=== PATIENT | male | born 2000 | race American Indian/Alaskan Native ===

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

== ENCOUNTER 2022-05-17 13:43 | Emergency (ER) | payer BC ==
[2022-05-17 14:44] LABS: Absolute Lymphocytes (CBC) 1.6 K/uL (0.7-4.9); Hematocrit 44.7 % (39.6-49.0); Lymphocytes % 49.6 % (15.3-44.8); MPV 8.9 fL (7.6-11.3)
[2022-05-17 14:49] LABS: Potassium 4.3 mmol/L (3.5-5.1)
[2022-05-17 14:57] LABS: Albumin 4.3 g/dL (3.4-5.0); Bilirubin Total 2.5 mg/dL (0.2-1.0); Protein, Total 7.2 g/dL (6.4-8.2)
[2022-05-17 14:59] LABS: Urine Blood Negative (Negative); Urine Glucose Negative (Negative); Urine Protein Negative (Negative); Urine Specific Gravity 1.025 (1.005-1.030)
--- NOTE | 2022-05-17 15:14 | RAD REPORT ---
EXAM DESCRIPTION: CT - Stone Protocol - 05/17/2022 2:40 pm CLINICAL HISTORY: Flank pain, kidney stone suspected COMPARISON: Abdomen Pelvis W Contrast dated 03/16/2019; CT ABD PELVIS W CONTRAST dated 05/21/2013 TECHNIQUE: Axial 3 mm thick images were obtained without oral or IV contrast. The [id number] span s the entirety of the system including uppermost abdomen and lung bases. All CT scans are performed using dose optimization technique as appropriate and may include automated exposure control or mA/KV adjustment according to patient size. FINDINGS: No hydronephrosis is present and no obstructing ureteral calculi. A 2 mm nonobstructing ca lculus is present right kidney lower pole calyx. No suspicious renal masses. Isodense masses and pyel onephritis are not excluded on a stone protocol CT scan. No significant adrenal finding. Urinary blad massiel is contracted limiting detail. No bladder calculus seen. Wall thickening or edema are not identif iable. Imaged portions of the liver, spleen and pancreas show no suspicious findings on non-contrast imaging . No gallbladder or biliary tree abnormality identified. No suspicious bowel findings. No appendicitis findings. No hernia, mass or bulky lymphadenopathy noted. No free air, free fluid or inflammatory stranding. No significant bony abnormality. L5 body is sacralized as a normal variant. IMPRESSION: No hydronephrosis, obstructing calculus or acute finding identifiable. Nonobstructing 2 mm calyx calcification lower pole right kidney. Isodense masses and pyelonephritis are not excluded on stone protocol technique.
[2022-05-17 15:35] LABS: Urine Bacteria <20 /HPF (NONE SEEN); Urine Mucus 2+ /HPF (NONE SEEN); Urine RBC <5 /HPF (NONE SEEN)
--- NOTE | 2022-05-17 16:25 | ER ---
Nurse's Notes [facility] Name: Jung Valentin Age: 21 yrs Sex: Male : 2000 Arrival Date: 05/17/2022 Time: 13:44 Bed 9 Private MD: Diagnosis: Calculus of kidney-right Presentation: 05/17 14:12 Chief complaint: Patient states: pain to right flank radiating to right groin and right aa5 testicle that began 1 month ago. Pt denies urinary symptoms ,denies nausea/vomiting. Reports pain only with movement. 14:12 Coronavirus screen: At this time, the client does not indicate any symptoms associated aa5 with coronavirus-19. Ebola Screen: No symptoms or risks identified at this time. Initial Sepsis Screen: Does the patient meet any 2 criteria? No. Patient's initial sepsis screen is negative. Does the patient have a suspected source of infection? No. Patient's initial sepsis screen is negative. Risk Assessment: Do you want to hurt yourself or someone else? Patient reports no desire to harm self or others. Onset of symptoms was April 2022. 14:12 Method Of Arrival: Ambulatory aa5 14:12 Acuity: JUANY 3 aa5 Historical: - Allergies: 14:14 No Known Allergies; aa5 - PMHx: 14:14 ADD/ADHD; aa5 - Immunization history:: Adult Immunizations unknown. - Social history:: Smoking status: Patient denies any tobacco usage or history of. Patient uses street drugs, marijuana. Screenin:08 Abuse screen: Denies threats or abuse. Nutritional screening: No deficits noted. jd3 Tuberculosis screening: No symptoms or risk factors identified. Fall Risk Ambulatory Aid- None/Bed Rest/Nurse Assist (0 pts). Gait- Normal/Bed Rest/Wheelchair (0 pts) Mental Status- Oriented to own ability (0 pts). Total Nicholson Fall Scale indicates No Risk (0-24 pts). Assessment: 14:36 Reassessment: Patient is alert, oriented x 3, equal unlabored respirations, skin aa5 warm/dry/pink. Pt to CT . 16:06 General: Appears in no apparent distress. comfortable, Behavior is calm, cooperative, jd3 appropriate for age. Pain: Complains of pain in back. Neuro: Ramos Agitation-Sedation Scale (RASS): 0 - Alert and Calm Level of Consciousness is awake, alert, obeys commands, Oriented to person, place, time, situation. Cardiovascular: Capillary refill < 3 seconds Patient's skin is warm and dry. Respiratory: Airway is patent Respiratory effort is even, unlabored, Respiratory pattern is regular, symmetrical. GI: Abdomen is flat, non-distended, Abd is soft and non tender X 4 quads. : Reports pain flank(s). EENT: No signs and/or symptoms were reported regarding the EENT system. Derm: Skin is intact, Skin is dry, Skin is normal, Skin temperature is warm. Musculoskeletal: Circulation, motion, and sensation intact. Range of motion: intact in all extremities. 16:47 Reassessment: Patient and/or family updated on plan of care and expected duration. Pain jd3 level reassessed. Patient is alert, oriented x 3, equal unlabored respirations, skin warm/dry/pink. Vital Signs: 14:12 BP 124 / 78; Pulse 99; Resp 16 S; Temp 98.0(TE); Pulse Ox 100% on R/A; Weight 56.7 kg aa5 (R); Height 5 ft. 5 in. (165.10 cm) (R); Pain 0/10; 16:47 Pulse 91; Resp 16 S; Pulse Ox 100% on R/A; jd3 14:12 Body Mass Index 20.80 (56.70 kg, 165.10 cm) aa5 ED Course: 13:44 Patient arrived in ED. as 13:48 Jessee Navarro PA is PHCP. cp 13:48 Nolan Horton MD is Attending Physician. cp 14:12 Arm band placed on. aa5 14:14 Triage completed. aa5 14:34 Initial lab(s) drawn, by la, sent to lab. Inserted saline lock: 20 gauge in right aa5 antecubital area, using aseptic technique. Blood collected. 14:41 CT Stone Protocol In Process Unspecified. EDMS 16:05 Dante Alberto, THEO is Primary Nurse. jd3 16:08 Patient has correct armband on for positive identification. Bed in low position. Call jd3 light in reach. Side rails up X 1. Adult w/ patient. Pulse ox on. NIBP on. 16:24 Corbin Lay MD is Referral Physician. cp 16:47 No provider procedures requiring assistance completed. IV discontinued, intact, jd3 bleeding controlled, No redness/swelling at site. Pressure dressing applied. Administered Medications: No medications were administered Medication: 16:09 VIS not applicable for this client. jd3 Outcome: 16:25 Discharge ordered by MD. cp 16:47 Discharged to home ambulatory, with family. jd3 16:47 Condition: stable 16:47 Discharge instructions given to patient, family, Instructed on discharge instructions, follow up and referral plans. Demonstrated understanding of instructions, follow-up care. 16:48 Patient left the ED. jd3 Signatures: Dispatcher [employer] EDMS Ana Swan Audri RN RN aa5 Jessee Navarro PA PA cp Dante Alberto RN RN jd3 Mayela Beaver RN RN vg1 Corrections: (The following items were deleted from the chart) 14:14 14:12 Chief complaint: Patient states: pain to right flank radiating to right groin and aa5 right testicle that began 1 month ago. vg1
--- NOTE | 2022-05-17 16:26 | EDPHYS ---
Physician Documentation [facility] Name: Jung Valentin Age: 21 yrs Sex: Male : 2000 Arrival Date: 05/17/2022 Time: 13:44 Bed 9 Private MD: ED Physician Nolan Horton HPI: 05/17 14:30 This 21 yrs old Male presents to ER via Ambulatory with complaints of Abdominal Pain, cp Flank Pain, Testicular Pain. 14:30 The patient complains of pain in the right flank. cp 14:30 The pain radiates to the back and right side of abdomen and right testicle. Onset: The cp symptoms/episode began/occurred 1 month(s) ago. 14:30 Associated signs and symptoms: Pertinent negatives: diarrhea, dysuria, fever, cp hematuria, pain radiating to the lower extremities, vomiting. Severity of pain: in the emergency department the pain has improved markedly. 14:30 Patient reports pain to right flank has been intermittent times 1 month. At times pain cp radiates to right back, right abdomen and right testicle. Patient denies urinary symptoms, denies penile discharge. Historical: - Allergies: 14:14 No Known Allergies; aa5 - PMHx: 14:14 ADD/ADHD; aa5 - Immunization history:: Adult Immunizations unknown. - Social history:: Smoking status: Patient denies any tobacco usage or history of. Patient uses street drugs, marijuana. ROS: 14:35 Constitutional: Negative for body aches, chills, fever, poor PO intake. cp 14:35 Eyes: Negative for injury, pain, redness, and discharge. cp 14:35 ENT: Negative for drainage from ear(s), ear pain, sore throat, difficulty swallowing, difficulty handling secretions. 14:35 Cardiovascular: Negative for chest pain. 14:35 Respiratory: Negative for cough, shortness of breath, wheezing. 14:35 Abdomen/GI: Positive for abdominal pain, Negative for vomiting, diarrhea, constipation, anorexia. 14:35 Back: Positive for flank pain, on the right, Negative for decreased range of motion, pain at rest, pain with movement. 14:35 : Positive for testicular pain Negative for urinary symptoms. 14:35 Neuro: Negative for altered mental status, dizziness, headache, weakness. 14:35 All other systems are negative. Exam: 14:40 Constitutional: The patient appears in no acute distress, alert, awake, comfortable, cp non-toxic, well developed, well nourished. 14:40 Head/Face: Normocephalic, atraumatic. cp 14:40 Eyes: Periorbital structures: appear normal, Conjunctiva: normal, no exudate, no injection, Sclera: no appreciated abnormality, Lids and lashes: appear normal, bilaterally. 14:40 ENT: External ear(s): are unremarkable, Nose: is normal, Mouth: Lips: moist, Oral mucosa: pink and intact, moist, Posterior pharynx: Airway: no evidence of obstruction, patent. 14:40 Chest/axilla: Inspection: normal. 14:40 Cardiovascular: Rate: normal, Rhythm: regular. 14:40 Respiratory: the patient does not display signs of respiratory distress, Respirations: normal, no use of accessory muscles, no retractions, labored breathing, is not present, Breath sounds: are clear throughout, no decreased breath sounds, no stridor, no wheezing. 14:40 Abdomen/GI: Inspection: abdomen appears normal, Bowel sounds: active, all quadrants, Palpation: soft, in all quadrants, mild abdominal tenderness, in the anterior aspect of right lateral abdomen and posterior aspect of right lateral abdomen, rebound tenderness, is not appreciated, voluntary guarding, is not appreciated, involuntary guarding, is not appreciated. 14:40 : Male external genitalia: normal, no discharge, no swelling, no tenderness. Vital Signs: 14:12 BP 124 / 78; Pulse 99; Resp 16 S; Temp 98.0(TE); Pulse Ox 100% on R/A; Weight 56.7 kg aa5 (R); Height 5 ft. 5 in. (165.10 cm) (R); Pain 0/10; 16:47 Pulse 91; Resp 16 S; Pulse Ox 100% on R/A; jd3 14:12 Body Mass Index 20.80 (56.70 kg, 165.10 cm) aa5 MDM: 15:00 Differential diagnosis: nephrolithiasis, pyelonephritis, UTI, testicular torsion. cp 16:12 Patient medically screened. cp 16:25 Data reviewed: vital signs, nurses notes, lab test result(s), radiologic studies, CT cp scan. 16:25 Counseling: I had a detailed discussion with the patient and/or guardian regarding: the cp historical points, exam findings, and any diagnostic results supporting the discharge/admit diagnosis, lab results, radiology results, to return to the emergency department if symptoms worsen or persist or if there are any questions or concerns that arise at home. ED course: VSS. Discussed results of labs and CT abdomen/pelvis that was negative for acute findings. Will discharge to home for continued monitoring. 05/17 14:25 Order name: Urine Microscopic Only; Complete Time: 16:16 05/17 14:25 Order name: CBC with Diff; Complete Time: 16:16 05/17 16:16 Interpretation: Normal except: WBC 3.3; JOHNNIE% 39.6; LYM% 49.6; NEUT A 1.3. 05/17 14:25 Order name: CMP; Complete Time: 16:16 05/17 16:17 Interpretation: Normal except: AST 11; BILIT 2.5. 05/17 14:25 Order name: Lipase; Complete Time: 16:16 05/17 16:17 Interpretation: Reviewed. 05/17 14:25 Order name: CT Stone Protocol; Complete Time: 16:16 05/17 16:18 Interpretation: Report reviewed. 05/17 14:59 Order name: Urine Dipstick-Ancillary; Complete Time: 16:16 [facility] 05/17 14:25 Order name: Urine Dipstick-Ancillary (obtain specimen); Complete Time: 14:58 05/17 14:25 Order name: IV Saline Lock; Complete Time: 14:36 05/17 14:25 Order name: Labs collected and sent; Complete Time: 14:36 cp Administered Medications: No medications were administered Disposition Summary: 05/17/22 16:25 Discharge Ordered Location: Home cp Problem: new cp Symptoms: have improved cp Condition: Stable cp Diagnosis - Calculus of kidney - right cp Followup: cp - With: Corbin Lay MD - When: 1 week - Reason: pain continues Discharge Instructions: - Discharge Summary Sheet cp - Kidney Stones cp - Low-Purine Eating Plan cp Forms: - Medication Reconciliation Form cp - Thank You Letter cp - Antibiotic Education cp - Prescription Opioid Use cp Signatures: Dispatcher [facility] Tellez RN RN aa5 Jessee Navarro PA PA cp
[2022-05-17 16:53] VITALS: BP 124/78; TEMP 98; O2SAT 100
== END 2022-05-17 16:48 | disposition home or self-care (01) ==
LOC: ER 13:43
DX: N20.0 Calculus of kidney (principal); R10.9 Unspecified abdominal pain; N50.811 Right testicular pain
CPT/HCPCS: 36415; 74176; 76377; 80053; 81003; 81015; 83690; 85025; 99284